=== PATIENT | female | born 1995 | race Asian ===

== ENCOUNTER → 2023-02-21 | Outpatient (CLI) | payer BC ==
[2023-02-21 09:27] LABS: BASOPHILS % 1.1 % (0.0-2.0); EOSINOPHILS % 1.5 % (0.0-5.0); HEMATOCRIT. 37.8 % (36.0-48.0); HEMOGLOBIN. 12.9 g/dL (12.0-16.0); LYMPHOCYTES % 19.3 % (20.0-50.0); MEAN CORPUSCULAR HEMOGLOBIN 31.1 pg (28.0-32.0); MEAN CORPUSCULAR VOLUME 91.3 fL (81.0-99.0); MEAN PLATELET VOLUME 7.5 fl (7.4-10.4); MONOCYTES % 10.1 % (2.0-8.0); PLATELET 325 x1000/uL (130-400); RED BLOOD CELL COUNT 4.14 mill/uL (4.2-5.4); RED CELL DISTRIBUTION WIDTH 13.6 % (11.6-14.6); WHITE BLOOD COUNT 4.7 x1000/uL (4.5-11.0)
[2023-02-21 11:17] LABS: THYROID STIMULATING HORMONE 2.39 uIU/mL (0.55-4.78)
[2023-02-24 04:10] LABS: HIV SCREEN 4G Non Reactive (Non Reactive)
[2023-02-25 04:09] LABS: CHLAMYDIA TRACHOMATIS NAA Positive (Negative); NEISSERIA GONORRHOEAE NAA Negative (Negative)
== END | disposition home or self-care (01) ==
LOC: LAB 08:36
PROVIDERS: ATTEND Internal Medicine Endocrinology, Diabetes & Metabolism
DX: Z11.4 Encounter for screening for human immunodeficiency virus [HIV] (principal); R35.0 Frequency of micturition
CPT/HCPCS: 36415; 84439; 84443; 84702; 85025; 87077; 87186; 87389; 87491; 87591

== ENCOUNTER 2023-04-26 12:01 | Emergency (ER) | payer BC ==
[~2023-04-26] VITALS: Ht 152.4 cm; Wt 52.0 kg
[2023-04-26 12:08] VITALS: O2SAT 100
[2023-04-26 12:38] LABS: BASOPHILS % 0.3 % (0.0-2.0); EOSINOPHILS % 0.4 % (0.0-5.0); HEMATOCRIT. 35.3 % (36.0-48.0); LYMPHOCYTES % 8.7 % (20.0-50.0); MEAN CORPUSCULAR HEMOGLOBIN 30.9 pg (28.0-32.0); MEAN CORPUSCULAR HGB CONC 33.9 g/dL (31.0-37.0); MEAN CORPUSCULAR VOLUME 91.2 fL (81.0-99.0); MEAN PLATELET VOLUME 7.4 fl (7.4-10.4); NEUTROPHILS % 84.6 % (40.0-76.0); PLATELET 293 x1000/uL (130-400); RED BLOOD CELL COUNT 3.87 mill/uL (4.2-5.4); RED CELL DISTRIBUTION WIDTH 13.3 % (11.6-14.6); WHITE BLOOD COUNT 6.9 x1000/uL (4.5-11.0)
[2023-04-26 13:00] LABS: ALANINE AMINOTRANSFERASE 9 IU/L (10-49); ALBUMIN 4.3 g/dL (3.2-4.8); ASPARTATE AMINOTRANSFERASE 22 IU/L (<34); B-HCG QUANTITATIVE 68132 mIU/mL (<3); BILIRUBIN TOTAL 0.3 mg/dL (0.1-1.0); CALCIUM 8.8 mg/dL (8.7-10.4); CARBON DIOXIDE 21 mEq/L (21-32); CHLORIDE 103 mEq/L (98-107); CREATININE 0.6 mg/dL (0.6-1.0); GLUCOSE 89 mg/dL (70-105); POTASSIUM 3.4 mEq/L (3.5-5.1); PROTEIN TOTAL 7.3 g/dL (6.0-8.3); SODIUM 133 mEq/L (136-145); UREA NITROGEN BLOOD 12 mg/dL (9-23)
[2023-04-26] MEDS ORDERED: ONDANSETRON HCL 4MG/2ML INJ IV STA (13:25)
[2023-04-26] MEDS ORDERED: SODIUM CHLORIDE 0.9% 1,000 ML IV ONE (13:30)
[2023-04-26] MEDS ORDERED: KCL 10MEQ/50ML PREMIX 50 ML IV ONE (16:00)
[2023-04-26] MEDS ORDERED: DOXY1TAB3 MT (16:48)
[2023-04-26 17:00] VITALS: BP 120/80; PULSE 72; RESP 13; TEMP 98.6
[2023-04-26] MEDS ORDERED: POTASSIUM CHLORIDE 20MEQ TABLET SR PO ONE (17:00)
== END 2023-04-26 19:06 | disposition home or self-care (01) ==
LOC: ER 12:01 → EDBEDREQ 15:55 → ER 19:06
DX: O21.9 Vomiting of pregnancy, unspecified (principal); K59.00 Constipation, unspecified; Z3A.13 13 weeks gestation of pregnancy
CPT/HCPCS: 99285; 96374; 76801; 96361; 80053; 84702; 83690; 85025; 36415; 76817; J2405; J3480; J7030

== ENCOUNTER 2023-08-31 11:56 | Emergency (ER) | payer BC ==
[~2023-08-31] VITALS: Ht 149.9 cm; Wt 55.0 kg
[~2023-08-31 11:56] MED LIST: DOXY1TAB3 MT
[2023-08-31 11:58] VITALS: TEMP 98.1; O2SAT 98
[2023-08-31] MEDS ORDERED: ACETAMINOPHEN 10MG/ML IV SOLN IV ONE (12:30)
[2023-08-31] MEDS: ACETAMINOPHEN 1000MG/100ML IV NR (13:26)
[2023-08-31 15:31] VITALS: BP 98/62; PULSE 79; RESP 17
== END 2023-08-31 15:33 | disposition home or self-care (01) ==
LOC: ER 11:56
DX: O26.893 Other specified pregnancy related conditions, third trimester (principal); Z3A.32 32 weeks gestation of pregnancy
CPT/HCPCS: 96365; 99284; Z7610 ×2; J0131